=== PATIENT | female | born 1950 | race Caucasian/White ===

== ENCOUNTER 2017-03-19 06:26 | Outpatient (CLI) | payer OTHER ==
[2017-03-19 06:56] LABS: BASOPHILS % (AUTO) 0.7 %; EOSINOPHILS # (AUTO) 0.1 10^3/uL (0.0-0.7); HCT - HEMATOCRIT 40.4 % (37.0-47.0); HGB - HEMOGLOBIN 13.9 g/dL (12.0-16.0); LYMPHOCYTES # (AUTO) 1.9 10^3/uL (1.5-3.5); LYMPHOCYTES % (AUTO) 39.9 %; MEAN CORPUSCULAR HEMOGLOBIN 30.9 pg (27.0-31.0); MEAN CORPUSCULAR HGB CONC 34.5 g/dL (32.0-36.0); MEAN CORPUSCULAR VOLUME 89.4 fL (81.0-99.0); MONOCYTES # (AUTO) 0.6 10^3/uL (0.0-1.0); MONOCYTES % (AUTO) 12.3 %; NEUTROPHILS # (AUTO) 2.1 10^3/uL (1.5-6.6); NEUTROPHILS % (AUTO) 44.1 %; NUCLEATED RED BLOOD CELLS AUTO 0.2 /100WBC; RED BLOOD COUNT 4.51 10^6/uL (4.20-5.40); RED CELL DISTRIBUTION WIDTH 13.4 % (12.0-15.0); UNCORRECTED WHITE BLOOD COUNT 4.7 x10^3/uL; WHITE BLOOD COUNT 4.7 x10^3/uL (4.8-10.8)
[2017-03-19 07:30] LABS: ALBUMIN/GLOBULIN RATIO 1.6 (1.0-2.2); BUN - BLOOD UREA NITROGEN 20 mg/dL (6-20); CALCIUM 9.1 mg/dL (8.5-10.3); CARBON DIOXIDE - CO2 27 mmol/L (21-32); CHLORIDE 102 mmol/L (101-111); CHOL/HDL RATIO 2.8 (<4.4); CHOLESTEROL 234 mg/dL; CREATININE 0.8 mg/dL (0.4-1.0); GFR - MDRD 72 (>89); GLUCOSE 96 mg/dL (70-100); HDL CHOLESTEROL 85 mg/dL; LDL/HDL RATIO 1.6 (<4.4); POTASSIUM 3.5 mmol/L (3.5-5.0); SODIUM 139 mmol/L (135-145); TRIGLYCERIDES 57 mg/dL; VLDL CHOLESTEROL 11 mg/dL
== END 2017-03-19 06:27 | disposition home or self-care (01) ==
LOC: LAB 06:26
PROVIDERS: ATTEND Physician Assistant Medical
DX: Z00.00 Encounter for general adult medical examination without abnormal findings (principal); Z79.899 Other long term (current) drug therapy
CPT/HCPCS: 36415; 80053; 80061; 82306; 84443; 85025

== ENCOUNTER 2017-10-13 16:09 | Outpatient (CLI) | payer OTHER ==
--- NOTE | 2017-10-14 11:47 | XRAY Report ---
DATE OF SERVICE: 10/13/2017 TWO VIEW CHEST: 10/13/2017 COMPARISON: Two view chest of 11/29/2007. TECHNIQUE: Two views of the chest. FINDINGS: There is subtle pleural thickening of the posterior sulci, left greater than right. Difficult to exclude small pleural effusions or underlying consolidation or atelectasis. Clear lungs otherwise. No pneumothorax. Mediastinum unremarkable in other regards IMPRESSION: SUBTLE PLEURAL THICKENING OF THE POSTERIOR SULCI. POSSIBLE SMALL PLEURAL EFFUSIONS. UNDERLYING PROCESS NOT EXCLUDED. OTHER IMAGING SUCH CT IS AVAILABLE INDICATED. TD: 10/14/2017 12:04 MTDSalima
== END 2017-10-13 16:10 | disposition home or self-care (01) ==
LOC: DI 16:09
PROVIDERS: ATTEND Physician Assistant Medical
DX: R05 Cough (principal)
CPT/HCPCS: 71046

== ENCOUNTER 2017-10-20 08:10 | Outpatient (CLI) | payer MEDICARE ==
--- NOTE | 2017-10-20 18:43 | CT Report ---
DATE OF SERVICE: 10/20/2017 CT CHEST WITHOUT CONTRAST: 10/20/2017 CLINICAL INDICATION: Cough, abnormal chest x-ray. COMPARISON: Chest x-ray 10/13/2017, chest CT 02/20/2007. Axial CT images of the chest were obtained without intravenous contrast. In accordance with CT protocol optimization, one or more of the following dose reduction techniques were utilized for this exam: Automated exposure control, adjustment of mA and/or KV based on patient size, or use of iterative reconstructive technique. The heart and great vessels are unremarkable. No hilar or mediastinal lymphadenopathy is present. The lungs are clear. No effusion or pneumothorax is present. Osseous structures demonstrate degenerative changes. Limited evaluation of upper abdominal structures demonstrates polycystic changes in the liver. The adrenal glands are unremarkable. IMPRESSION: Interval resolution of trace pleural effusions. No suspicious pulmonary nodule or mass lesion. TD: 10/20/2017 19:41
== END 2017-10-20 08:11 | disposition home or self-care (01) ==
LOC: DI 08:10
PROVIDERS: ATTEND Physician Assistant Medical
DX: R05 Cough (principal)
CPT/HCPCS: 71250

== ENCOUNTER 2017-10-21 08:16 | Outpatient (CLI) | payer MEDICARE, OTHER ==
--- NOTE | 2017-10-21 11:53 | Ultrasound Report ---
DATE OF SERVICE: 10/21/2017 LEFT UPPER QUADRANT ULTRASOUND: 10/21/2017 CLINICAL INDICATION: Left upper quadrant pain. TECHNIQUE: Real-time scanning was performed with outbound telemarketing representative static images obtained. FINDINGS: Ultrasound of the left upper quadrant was performed. The spleen measures 11.1 cm, and demonstrates normal echotexture. No focal splenic lesion is seen. The left kidney measures 10.6 cm, and demonstrates an 8 mm cortical cyst. No hydronephrosis, solid renal lesion, or perinephric collection is seen. No free fluid is present. IMPRESSION: INCIDENTAL LEFT RENAL CYST. NORMAL SPLEEN. NO FREE FLUID. TD: 10/21/2017 12:53
== END 2017-10-21 08:17 | disposition home or self-care (01) ==
LOC: DI 08:16
PROVIDERS: ATTEND Physician Assistant Medical
DX: R10.12 Left upper quadrant pain (principal); N28.1 Cyst of kidney, acquired
CPT/HCPCS: 76705

== ENCOUNTER 2017-12-05 10:07 | Outpatient (CLI) | payer MEDICARE | END 2017-12-05 10:08 | disposition home or self-care (01) | LOC: LAB.R 10:07 | PROVIDERS: ATTEND Physician Assistant Medical | DX: J02.9 Acute pharyngitis, unspecified (principal) | CPT/HCPCS: 87070 ==

== ENCOUNTER 2018-02-06 08:00 | Outpatient (CLI) | payer MEDICARE, OTHER | END 2018-02-06 08:01 | disposition home or self-care (01) | LOC: LAB.R 08:00 | PROVIDERS: ATTEND Physician Assistant Medical | DX: N30.00 Acute cystitis without hematuria (principal) | CPT/HCPCS: 87086 ==

== ENCOUNTER 2018-04-26 10:36 | Outpatient (CLI) | payer MEDICARE, OTHER ==
[2018-04-26 11:01] LABS: BASOPHILS # (AUTO) 0.1 10^3/uL (0.0-0.1); BASOPHILS % (AUTO) 0.9 %; EOSINOPHILS # (AUTO) 0.1 10^3/uL (0.0-0.7); EOSINOPHILS % (AUTO) 1.3 %; HGB - HEMOGLOBIN 13.7 g/dL (12.0-16.0); LYMPHOCYTES # (AUTO) 1.7 10^3/uL (1.5-3.5); LYMPHOCYTES % (AUTO) 24.3 %; MEAN CORPUSCULAR HEMOGLOBIN 30.6 pg (27.0-31.0); MEAN CORPUSCULAR HGB CONC 33.9 g/dL (32.0-36.0); MEAN CORPUSCULAR VOLUME 90.3 fL (81.0-99.0); MEAN PLATELET VOLUME 7.8 fL (7.9-10.8); MONOCYTES # (AUTO) 0.6 10^3/uL (0.0-1.0); MONOCYTES % (AUTO) 8.4 %; NEUTROPHILS # (AUTO) 4.4 10^3/uL (1.5-6.6); NEUTROPHILS % (AUTO) 65.1 %; PLT - PLATELET COUNT 237 10^3/uL (130-450); RED BLOOD COUNT 4.47 10^6/uL (4.20-5.40); RED CELL DISTRIBUTION WIDTH 13.1 % (12.0-15.0); WHITE BLOOD COUNT 6.8 x10^3/uL (4.8-10.8)
[2018-04-26 11:19] LABS: ALBUMIN/GLOBULIN RATIO 1.2 (1.0-2.2); ALKALINE PHOSPHATASE 77 IU/L (42-121); ALT ALANINE AMINOTRANSFERASE 21 IU/L (10-60); AST ASPARTATE AMINOTRANSFERASE 27 IU/L (10-42); BUN - BLOOD UREA NITROGEN 20 mg/dL (6-20); CALCIUM 9.3 mg/dL (8.5-10.3); CARBON DIOXIDE - CO2 27 mmol/L (21-32); CHLORIDE 103 mmol/L (101-111); CREATININE 0.8 mg/dL (0.4-1.0); GFR - MDRD 72 (>89); GLUCOSE 104 mg/dL (70-100); SODIUM 137 mmol/L (135-145); TOTAL PROTEIN 7.4 g/dL (6.7-8.2)
[2018-04-26 11:25] LABS: CRP - C-REACTIVE PROTEIN < 1.0 mg/dL (0-1.0)
[2018-04-26] MEDS ORDERED: IOPAMIDOL-300 100 ML VIAL ONE (12:06)
--- NOTE | 2018-04-26 13:22 | XRAY Report ---
Procedure Date: 04/26/2018 Accession Number: [id number] / [id number] Procedure: XR - Chest 2 View X-Ray CPT Code: 55474 FULL RESULT: EXAM: Chest 2 View X-Ray DATE: 04/26/2018 11:22 AM CLINICAL HISTORY: ABN CHEST RADIOGRAPH,COUGH COMPARISON: CT chest 10/20/2017 and chest radiograph 10/13/2017. TECHNIQUE: 2 views. FINDINGS: Lungs/Pleura: Blunting of the costophrenic angles due to trace bilateral pleural effusions is again seen, similar to the October radiograph. No focal lung opacities. No pneumothorax. Lung volumes are mildly hyperinflated. Mediastinum: Heart and mediastinal contours are unremarkable. Other: None. IMPRESSION: Trace bilateral pleural effusions similar to October. Given that the CT examination excluded underlying mass lesion, radiographic follow-up is not mandatory. Please note that these were resolved at the time of the CT of the chest. RADIA
[2018-04-26] MEDS ORDERED: IOPAMIDOL-300 100 ML VIAL IVP ONE (13:36)
--- NOTE | 2018-04-26 14:21 | CT Report ---
Procedure Date: 04/26/2018 Accession Number: [id number] / [id number] Procedure: CT - Neck Soft Tissue W/ CPT Code: FULL RESULT: EXAM: Neck Soft Tissue W/ DATE: 04/26/2018 1:53 PM CLINICAL HISTORY: FATIGUE MALAIDE,PHARYNGITIS,ABN CHEST RAD COMPARISON: None. TECHNIQUE: Routine soft tissue neck CT protocol. IV contrast: 50 mL Isovue 300 Reconstructions: Coronal and sagittal. In accordance with CT protocol optimization, one or more of the following dose reduction techniques were utilized for this exam: automated exposure control, adjustment of mA and/or KV based on patient size, or use of iterative reconstructive technique. FINDINGS: Bones: Preserved alignment of the cervical spine with straightening of the normal cervical lordosis and multilevel degenerative changes most pronounced at C5-6 and C6-7. There is no fracture or traumatic subluxation. Glands: The salivary glands, thyroid gland are normal in size and enhancement. Soft Tissues: Early gas containing left pharyngeal mucosal space abscess with a 3 mm hyperdensity concerning for foreign body/tonsillolith. Due to obliteration of fat planes exact measurements are difficult, approximately 1.5 x 0.8 x 1.5 cm in maximal dimensions. Other: Left greater than right maxillary sinus opacification correlate clinical sinusitis. IMPRESSION: Left pharyngeal mucosal space abscess measuring up to 1.5 cm. CRITICAL RESULT ADALI SARABIA was notified by Cayden Nguyen of the above findings at 2:15 PM 04/26/2018 and has accepted responsibility for followup. RADIA
== END 2018-04-26 10:37 | disposition home or self-care (01) ==
LOC: DI 10:36
PROVIDERS: ATTEND Physician Assistant Medical
DX: J39.1 Other abscess of pharynx (principal); J02.9 Acute pharyngitis, unspecified; R53.83 Other fatigue; R91.8 Other nonspecific abnormal finding of lung field
CPT/HCPCS: 36415; 70491; 71046; 80053; 85025; 85651; 86140; Q9967

== ENCOUNTER 2018-04-27 10:25 | Outpatient (CLI) | payer MEDICARE, OTHER ==
[2018-04-27 15:30] LABS: CALCIUM 9.6 mg/dL (8.5-10.3); CREATININE 0.7 mg/dL (0.4-1.0)
== END 2018-04-27 10:26 | disposition home or self-care (01) ==
LOC: LAB.R 10:25
PROVIDERS: ATTEND Physician Assistant Medical
DX: Z79.899 Other long term (current) drug therapy (principal)
CPT/HCPCS: 80048

== ENCOUNTER 2018-05-26 08:00 | Outpatient (CLI) | payer MEDICARE, OTHER ==
[2018-05-26 15:22] LABS: ALBUMIN 4.4 g/dL (3.2-5.5); ALBUMIN/GLOBULIN RATIO 1.5 (1.0-2.2); ALKALINE PHOSPHATASE 57 IU/L (42-121); ALT ALANINE AMINOTRANSFERASE 20 IU/L (10-60); AST ASPARTATE AMINOTRANSFERASE 27 IU/L (10-42); BILIRUBIN,TOTAL 0.8 mg/dL (0.2-1.0); BUN - BLOOD UREA NITROGEN 17 mg/dL (6-20); CALCIUM 9.2 mg/dL (8.5-10.3); CARBON DIOXIDE - CO2 27 mmol/L (21-32); CHLORIDE 102 mmol/L (101-111); CHOL/HDL RATIO 3.2 (<4.4); CHOLESTEROL 270 mg/dL; CREATININE 0.9 mg/dL (0.4-1.0); GFR - MDRD 63 (>89); GLUCOSE 78 mg/dL (70-100); HDL CHOLESTEROL 84 mg/dL; LDL CHOLESTEROL,CALCULATED 173 mg/dL; LDL/HDL RATIO 2.1 (<4.4); SODIUM 136 mmol/L (135-145); TOTAL PROTEIN 7.3 g/dL (6.7-8.2); VLDL CHOLESTEROL 13 mg/dL
[2018-05-26 15:26] LABS: BASOPHILS % (AUTO) 0.7 %; EOSINOPHILS # (AUTO) 0.1 10^3/uL (0.0-0.7); EOSINOPHILS % (AUTO) 2.3 %; HGB - HEMOGLOBIN 14.3 g/dL (12.0-16.0); LYMPHOCYTES # (AUTO) 1.3 10^3/uL (1.5-3.5); LYMPHOCYTES % (AUTO) 34.7 %; MEAN CORPUSCULAR HGB CONC 33.9 g/dL (32.0-36.0); MEAN CORPUSCULAR VOLUME 91.5 fL (81.0-99.0); MEAN PLATELET VOLUME 8.5 fL (7.9-10.8); MONOCYTES # (AUTO) 0.5 10^3/uL (0.0-1.0); MONOCYTES % (AUTO) 12.3 %; NEUTROPHILS # (AUTO) 1.8 10^3/uL (1.5-6.6); PLT - PLATELET COUNT 202 10^3/uL (130-450); RED BLOOD COUNT 4.61 10^6/uL (4.20-5.40); RED CELL DISTRIBUTION WIDTH 13.8 % (12.0-15.0); WHITE BLOOD COUNT 3.7 x10^3/uL (4.8-10.8)
[2018-05-30 13:04] LABS: HEPATITIS C ANTIBODY NON-REACTIVE (NON-REACTIVE)
== END 2018-05-26 08:01 | disposition home or self-care (01) ==
LOC: LAB.R 08:00
PROVIDERS: ATTEND Physician Assistant Medical
DX: Z79.899 Other long term (current) drug therapy (principal); E55.9 Vitamin D deficiency, unspecified; E78.2 Mixed hyperlipidemia; Z72.89 Other problems related to lifestyle; M85.80 Other specified disorders of bone density and structure, unspecified site
CPT/HCPCS: 80053; 80061; 82306; 83721; 84443; 85025; 86803

== ENCOUNTER 2022-03-24 08:00 | Outpatient (CLI) | payer MEDICARE, OTHER ==
[2022-03-24 15:56] LABS: BASOPHILS % (AUTO) 0.7 %; EOSINOPHILS # (AUTO) 0.1 10^3/uL (0.0-0.7); EOSINOPHILS % (AUTO) 2.4 %; HCT - HEMATOCRIT 43.5 % (37.0-47.0); HGB - HEMOGLOBIN 14.4 g/dL (12.0-16.0); LYMPHOCYTES # (AUTO) 1.5 10^3/uL (1.5-3.5); LYMPHOCYTES % (AUTO) 31.5 %; MEAN CORPUSCULAR HEMOGLOBIN 31.4 pg (27.0-31.0); MEAN CORPUSCULAR HGB CONC 33.1 g/dL (32.0-36.0); MEAN CORPUSCULAR VOLUME 94.8 fL (81.0-99.0); MEAN PLATELET VOLUME 10.7 fL (7.9-10.8); MONOCYTES # (AUTO) 0.6 10^3/uL (0.0-1.0); MONOCYTES % (AUTO) 13.4 %; NEUTROPHILS # (AUTO) 2.4 10^3/uL (1.5-6.6); PLT - PLATELET COUNT 179 10^3/uL (130-450); RED BLOOD COUNT 4.59 10^6/uL (4.20-5.40); RED CELL DISTRIBUTION WIDTH 13.2 % (12.0-15.0); WHITE BLOOD COUNT 4.6 x10^3/uL (4.8-10.8)
[2022-03-24 16:12] LABS: ALBUMIN 4.2 g/dL (3.2-5.5); ALBUMIN/GLOBULIN RATIO 1.4 (1.0-2.2); ALKALINE PHOSPHATASE 58 IU/L (42-121); ALT ALANINE AMINOTRANSFERASE 18 IU/L (10-60); AST ASPARTATE AMINOTRANSFERASE 24 IU/L (10-42); BILIRUBIN,TOTAL 0.8 mg/dL (0.2-1.0); BUN - BLOOD UREA NITROGEN 19 mg/dL (6-20); CALCIUM 9.2 mg/dL (8.5-10.3); CARBON DIOXIDE - CO2 27 mmol/L (21-32); CHLORIDE 102 mmol/L (101-111); CHOL/HDL RATIO 3.3 (<4.4); CHOLESTEROL 249 mg/dL; CREATININE 0.9 mg/dL (0.4-1.0); GFR - MDRD 62 (>89); GLUCOSE 86 mg/dL (70-100); HDL CHOLESTEROL 75 mg/dL; LDL CHOLESTEROL,CALCULATED 152 mg/dL; POTASSIUM 3.8 mmol/L (3.5-5.0); SODIUM 139 mmol/L (135-145); TOTAL PROTEIN 7.3 g/dL (6.7-8.2); TRIGLYCERIDES 110 mg/dL; VLDL CHOLESTEROL 22 mg/dL
[2022-03-27 06:09] LABS: HCV RNA QUANTITATION HCV Not Detected IU/mL (.)
== END 2022-03-24 23:59 | disposition home or self-care (01) ==
LOC: LAB.R 08:00
PROVIDERS: ATTEND Internal Medicine
DX: R03.0 Elevated blood-pressure reading, without diagnosis of hypertension (principal); N13.30 Unspecified hydronephrosis; Z11.59 Encounter for screening for other viral diseases; B02.9 Zoster without complications; Z79.899 Other long term (current) drug therapy
CPT/HCPCS: 80053; 80061; 82306; 83721; 84443; 85025; 87521

== ENCOUNTER 2022-04-05 08:00 | Outpatient (CLI) | payer MEDICARE, OTHER ==
[2022-04-05 19:48] LABS: CK- CREATINE KINASE 98 IU/L (22-269)
[2022-04-05 19:52] LABS: CRP - C-REACTIVE PROTEIN < 1.0 mg/dL (0-1.0)
== END 2022-04-05 23:59 | disposition home or self-care (01) ==
LOC: LAB.R 08:00
PROVIDERS: ATTEND Internal Medicine
DX: R03.0 Elevated blood-pressure reading, without diagnosis of hypertension (principal); R53.83 Other fatigue; M79.10 Myalgia, unspecified site
CPT/HCPCS: 82550; 85651; 86140

== ENCOUNTER 2023-12-06 07:22 | Outpatient (CLI) | payer MEDICARE, OTHER ==
[2023-12-06 07:50] LABS: BILIRUBIN,URINE NEGATIVE (NEGATIVE); GLUCOSE, URINE (UA) NEGATIVE (NEGATIVE); KETONES,URINE (UA) NEGATIVE (NEGATIVE); LEUKOCYTE ESTERASE, URINE SMALL (NEGATIVE); NITRITE,URINE NEGATIVE (NEGATIVE); OCCULT BLOOD,URINE NEGATIVE (NEGATIVE); PH,URINE 6.5 PH (5.0-7.5); PROTEIN,URINE NEGATIVE (NEGATIVE); UROBILINOGEN,URINE 0.2 (NORMAL) E.U./dL (NORMAL)
[2023-12-06 07:58] LABS: BASOPHILS # (AUTO) 0.1 10^3/uL (0.0-0.1); BASOPHILS % (AUTO) 1.1 %; EOSINOPHILS # (AUTO) 0.3 10^3/uL (0.0-0.7); EOSINOPHILS % (AUTO) 5.8 %; HCT - HEMATOCRIT 40.5 % (37.0-47.0); HGB - HEMOGLOBIN 13.6 g/dL (12.0-16.0); LYMPHOCYTES # (AUTO) 1.5 10^3/uL (1.5-3.5); LYMPHOCYTES % (AUTO) 32.5 %; MEAN CORPUSCULAR HEMOGLOBIN 31.1 pg (27.0-31.0); MEAN CORPUSCULAR HGB CONC 33.6 g/dL (32.0-36.0); MEAN CORPUSCULAR VOLUME 92.5 fL (81.0-99.0); MEAN PLATELET VOLUME 9.9 fL (7.9-10.8); MONOCYTES # (AUTO) 0.6 10^3/uL (0.0-1.0); NEUTROPHILS # (AUTO) 2.2 10^3/uL (1.5-6.6); NEUTROPHILS % (AUTO) 47.5 %; PLT - PLATELET COUNT 195 10^3/uL (130-450); RED BLOOD COUNT 4.38 10^6/uL (4.20-5.40); RED CELL DISTRIBUTION WIDTH 12.5 % (12.0-15.0); WHITE BLOOD COUNT 4.7 x10^3/uL (4.8-10.8)
[2023-12-06 08:01] LABS: ALBUMIN 4.2 g/dL (3.2-5.5); ALBUMIN/GLOBULIN RATIO 1.4 (1.0-2.2); ALKALINE PHOSPHATASE 71 IU/L (42-121); ALT ALANINE AMINOTRANSFERASE 12 IU/L (10-60); AST ASPARTATE AMINOTRANSFERASE 15 IU/L (10-42); BILIRUBIN,TOTAL 0.7 mg/dL (0.2-1.0); BUN - BLOOD UREA NITROGEN 17 mg/dL (6-20); CALCIUM 9.5 mg/dL (8.5-10.3); CARBON DIOXIDE - CO2 29 mmol/L (21-32); CHLORIDE 104 mmol/L (101-111); CHOL/HDL RATIO 3.1 (<4.4); CHOLESTEROL 229 mg/dL; GFR - MDRD 55 (>89); GLUCOSE 101 mg/dL (74-104); HDL CHOLESTEROL 73 mg/dL; LDL CHOLESTEROL,CALCULATED 134 mg/dL; LDL/HDL RATIO 1.8 (<4.4); POTASSIUM 3.5 mmol/L (3.5-4.5); SODIUM 138 mmol/L (135-145); TOTAL PROTEIN 7.1 g/dL (6.4-8.9); TRIGLYCERIDES 108 mg/dL (48-352); VLDL CHOLESTEROL 22 mg/dL
[2023-12-06 08:01] LABS: BACTERIA,URINE Few /HPF (None Seen); CLARITY,URINE CLEAR (CLEAR); RBC,URINE None Seen /HPF (0-5); SQUAMOUS EPITHELIAL CELL,UR FEW Squamous (<= Few)
== END 2023-12-06 07:23 | disposition home or self-care (01) ==
LOC: LAB 07:22
PROVIDERS: ATTEND Nurse Practitioner
DX: Z00.00 Encounter for general adult medical examination without abnormal findings (principal); M54.50 Low back pain, unspecified; G89.29 Other chronic pain
CPT/HCPCS: 36415; 80053; 80061; 81001; 83721; 85025; 87086

== ENCOUNTER 2024-01-03 12:34 | Outpatient (CLI) | payer MEDICARE, OTHER ==
--- NOTE | 2024-01-03 16:26 | DEXA Report ---
PROCEDURE: Dexa Spine and/or Hip INDICATIONS: POST MENOPAUSAL TECHNIQUE: Dual energy x-ray absorptiometry (DXA) was performed on a Gobbler System. Regions measur ed are the AP Spine, femoral neck, and if needed forearm. COMPARISON: None. FINDINGS: Lumbar Spine: Bone Mineral Density: 1.052 g/cm/cm,T score: -1.2. Left Femoral Neck: Bone Mineral Density: 0.784 g/cm/cm, T score: -1.8. Left Hip: Bone Mineral Density: 0.747 g/cm/cm,T score: -2.1. (T score greater or equal to -1.0: NORMAL) (T score from -1.1 to -2.4: OSTEOPENIA) (T score less than or equal to -2.5 to: OSTEOPOROSIS) Impression: By WHO criteria, this patient has osteopenia. Patients with diagnosis of osteoporosis or osteopenia should have regular bone mineral density assess ment. For those eligible for Medicare, routine testing is allowed once every 2 years. Testing frequ ency can be increased for patients who have rapidly progressing disease or for those who are receivin g medical therapy to restore bone mass. Reviewed by: Jared Yancey MD on 01/03/2024 4:25 PM PDT Approved by: Jared Yancey MD on 01/03/2024 4:25 PM PDT Station ID: [id number]
== END 2024-01-03 12:35 | disposition home or self-care (01) ==
LOC: DI 12:34
PROVIDERS: ATTEND Nurse Practitioner
DX: Z78.0 Asymptomatic menopausal state (principal); M85.89 Other specified disorders of bone density and structure, multiple sites

== ENCOUNTER 2024-02-06 14:48 | Outpatient (CLI) | payer MEDICARE, OTHER ==
--- NOTE | 2024-02-07 10:40 | Ultrasound Report ---
PROCEDURE: Renal (Retroperitoneal) INDICATIONS: HYDRONEPHROSIS TECHNIQUE: Real-time scanning was performed of the retroperitoneal organs, with image documentation. COMPARISON: Ultrasound abdomen limited, 10/21/2017. FINDINGS: Kidneys: Kidneys are normal in size. Right kidney measures 10.5 cm long; left kidney measures 11.0 cm long. Right renal cortical thickness is 0.9 cm; left renal cortical thickness is 1.1 cm. Questio n right hydronephrosis versus parapelvic cyst measuring 2.1 x 2.5 x 1.0 cm. No solid masses or nephro lithiasis. There is a 1.1 x 1.0 x 0.8 cm simple appearing exophytic cyst in left kidney. Bladder: Pre-void bladder volume is 306.5 mL. Post-void residual is 43.7 mL. Pre-void images demon strate no intraluminal masses or stones. On pre-void images, both ureteral jets are noted with color Doppler interrogation. (Of note, ureteral jets may not be detectable in up to 25% of cases due to i nsufficient differences in specific gravity between ureteral and bladder urine). Miscellaneous: No free abdominal fluid. IMPRESSION: 1. Question right hydronephrosis versus parapelvic renal cyst. If clinically indicated, CT IVP can be obtained for further evaluation. 2. A small simple exophytic cyst in left kidney. 3. 43.7 cc post void residual in urinary bladder. Reviewed by: Jared Yancey MD on 02/07/2024 10:38 AM PDT Approved by: Jared Yancey MD on 02/07/2024 10:38 AM PDT Station ID: [id number]
== END 2024-02-06 14:49 | disposition home or self-care (01) ==
LOC: DI 14:48
PROVIDERS: ATTEND Nurse Practitioner
DX: N13.30 Unspecified hydronephrosis (principal); N28.1 Cyst of kidney, acquired

== ENCOUNTER 2024-02-29 09:31 | Outpatient (CLI) | payer MEDICARE, OTHER ==
--- NOTE | 2024-02-29 11:19 | MRI Report ---
PROCEDURE: Abdomen WO INDICATIONS: HYDRONEPHROSIS TECHNIQUE: Coronal ultra fast SE, axial 2-D spoiled GE in- and [id number] with subtractions from the hepatic d ome to the iliac crests. COMPARISON: Ultrasound 02/06/2024 FINDINGS: Image quality: Diagnostic, but limited by noncontrast technique Lower chest: No basal effusions Liver: Numerous presumed cysts. Complete characterization is limited by lack of contrast. Gallbladder and biliary system: Unremarkable gallbladder. Nondilated biliary system Pancreas: No ductal dilation Spleen: Nonenlarged Adrenals: Possible left adrenal thickening Kidneys: Numerous presumed cysts, with varying intrinsic T1 signal usually representing proteinaceous or hemorrhagic products. Characterization however is incomplete in the absence of contrast. Spondylo sis are in the parapelvic region. There is mild bilateral pelviectasis, slightly greater on the right . No hydroureter identified. Vessels and lymph nodes: No pathologic lymph nodes by size criteria No abdominal aortic aneurysm. Bowel and peritoneum: No evidence of small bowel obstruction or pathologic ascites Body wall: Unremarkable Bones: No acute or suspicious osseous finding. Degenerative changes are present. Possible Modic cop[place] es in the lumbar spine. IMPRESSION: Suspected mild bilateral pelviectasis with normal diameter ureter. This may be due to chronic UPJ na rrowing. Numerous presumed cysts of the liver and kidneys are suspected, characterization is incomplete howeve r without intravenous contrast. Some of the renal cysts are in the parapelvic space. Reviewed by: Magen Ann MD on 02/29/2024 11:18 AM PDT Approved by: Magen Ann MD on 02/29/2024 11:18 AM PDT Station ID: [id number]
== END 2024-02-29 09:32 | disposition home or self-care (01) ==
LOC: DI 09:31
PROVIDERS: ATTEND Nurse Practitioner
DX: N13.30 Unspecified hydronephrosis (principal); R93.89 Abnormal findings on diagnostic imaging of other specified body structures